=== PATIENT | female | born 1990 | race Caucasian/White ===

== ENCOUNTER 2017-01-26 15:00 | Emergency (ER) | payer MEDICAID ==
[~2017-01-26 15:00] MED LIST: ELAVIL50 MG PO; KLONOPIN0.5 MG PO; KLONOPIN1 MG PO; LITHIUM CARBON300 MG PO; REMERON15 MG PO; RISPERDAL1 MG PO; RISPERDAL2 MG PO
[2017-01-26] MEDS ORDERED: CEROVITE ADVANC1 TAB PO (16:59)
[2017-01-26] MEDS ORDERED: NICODERM CQ1 EAC1 SUBCUT (17:00)
[2017-01-26] MEDS ORDERED: INDERAL40 MG PO (17:01)
[2017-01-26] MEDS ORDERED: MINIPRESS5 MG PO (17:01)
[2017-01-26] MEDS ORDERED: IMITREX50 MG PO (17:02)
[2017-01-26] MEDS ORDERED: RESTORIL15 MG PO (17:02)
[2017-01-26] MEDS ORDERED: TOPAMAX50 MG PO (17:03)
[2017-01-26] MEDS ORDERED: VITAMIN C500 M1 PO (17:04)
== END 2017-01-26 15:39 | disposition short-term general hospital (02) ==
LOC: ER 15:00
PROC: 0BH17EZ Insertion of Endotracheal Airway into Trachea, Via Natural or Artificial Opening (ICD-10-PCS; principal; 2017-01-26)
PROC: 0T9B70Z Drainage of Bladder with Drainage Device, Via Natural or Artificial Opening (ICD-10-PCS; 2017-01-26)
DX: T40.2X2A Poisoning by other opioids, intentional self-harm, initial encounter (principal); S31.119A Laceration without foreign body of abdominal wall, unspecified quadrant without penetration into peritoneal cavity, initial encounter; D64.9 Anemia, unspecified; F32.9 Major depressive disorder, single episode, unspecified; I10 Essential (primary) hypertension; R89.2 Abnormal level of other drugs, medicaments and biological substances in specimens from other organs, systems and tissues; R82.5 Elevated urine levels of drugs, medicaments and biological substances; F90.9 Attention-deficit hyperactivity disorder, unspecified type; F41.9 Anxiety disorder, unspecified; K21.9 Gastro-esophageal reflux disease without esophagitis; G47.00 Insomnia, unspecified; G43.909 Migraine, unspecified, not intractable, without status migrainosus; Z91.040 Latex allergy status; Z88.8 Allergy status to other drugs, medicaments and biological substances; F17.200 Nicotine dependence, unspecified, uncomplicated; X78.1XXA Intentional self-harm by knife, initial encounter
CPT/HCPCS: G0477; G0480

== ENCOUNTER 2017-02-07 21:27 | Emergency (ER) | payer MEDICAID ==
[~2017-02-07] VITALS: Ht 167.6 cm; Wt 77.1 kg
[~2017-02-07 21:27] MED LIST changes: +CEROVITE ADVANC1 TAB PO; +IMITREX50 MG PO; +INDERAL40 MG PO; +MINIPRESS5 MG PO; +NICODERM CQ1 EAC1 SUBCUT; +RESTORIL15 MG PO; +TOPAMAX50 MG PO; +VITAMIN C500 M1 PO
== END 2017-02-07 22:30 | disposition short-term general hospital (02) ==
LOC: ER 21:27
DX: G89.18 Other acute postprocedural pain (principal); R10.9 Unspecified abdominal pain

== ENCOUNTER 2017-02-08 21:24 | Emergency (ER) | payer MEDICAID ==
[~2017-02-08] VITALS: Ht 167.6 cm; Wt 77.1 kg
== END 2017-02-08 22:40 | disposition short-term general hospital (02) ==
LOC: ER 21:24
DX: S31.119D Laceration without foreign body of abdominal wall, unspecified quadrant without penetration into peritoneal cavity, subsequent encounter (principal); L98.9 Disorder of the skin and subcutaneous tissue, unspecified; X78.9XXD Intentional self-harm by unspecified sharp object, subsequent encounter

== ENCOUNTER 2017-03-13 18:29 | Emergency (ER) | payer MEDICAID ==
[~2017-03-13] VITALS: Ht 167.6 cm; Wt 72.6 kg
== END 2017-03-13 19:52 | disposition short-term general hospital (02) ==
LOC: ER 18:29
DX: G43.909 Migraine, unspecified, not intractable, without status migrainosus (principal); F17.210 Nicotine dependence, cigarettes, uncomplicated; F41.9 Anxiety disorder, unspecified; F31.9 Bipolar disorder, unspecified; F90.9 Attention-deficit hyperactivity disorder, unspecified type; Z98.890 Other specified postprocedural states; Z79.899 Other long term (current) drug therapy
CPT/HCPCS: J1885; J2405

== ENCOUNTER 2017-05-03 06:12 | Emergency (ER) | payer MEDICAID ==
[~2017-05-03] VITALS: Ht 170.2 cm; Wt 59.0 kg
== END 2017-05-03 08:59 | disposition short-term general hospital (02) ==
LOC: ER 06:12
DX: G43.909 Migraine, unspecified, not intractable, without status migrainosus (principal); R19.7 Diarrhea, unspecified; R10.11 Right upper quadrant pain; N39.0 Urinary tract infection, site not specified; F41.9 Anxiety disorder, unspecified; F31.9 Bipolar disorder, unspecified; F90.9 Attention-deficit hyperactivity disorder, unspecified type; Z79.899 Other long term (current) drug therapy
CPT/HCPCS: J1885; J2175; J2550